=== PATIENT | female | born 1985 | race Caucasian/White ===

== ENCOUNTER → 2022-07-03 17:01 | Outpatient (CLI) | payer OTHER, MEDICAID, SELFPAY ==
--- NOTE | 2022-07-03 17:03 | DI.RAD.S_ITS ---
PROCEDURE: XR CHEST 2V INDICATIONS: Cough TECHNIQUE: 2 views of the chest were acquired. COMPARISON: None. FINDINGS: Surgical changes and devices: None. Lungs and pleura: Increased bronchovascular markings in bilateral hilar region are seen with mild bronchial wall thickening. No definite focal infiltrate. No pleural effusions or pneumothorax. Mediastinum: Mediastinal contours are normal. Heart size is normal. Bones and chest wall: No suspicious bony abnormalities. Soft tissues appear unremarkable. IMPRESSION: Finding is suggestive of reactive airway disease such as bronchitis or viral illness. No definite focal infiltrate. No pleural effusion or pneumothorax. Dictated by: Soham Campo M.D. on 07/04/2022 at 8:21 Approved by: Soham Campo M.D. on 07/04/2022 at 8:22
== END ==
PROVIDERS: Referring Provider Nurse Practitioner Family; Visit Provider Nurse Practitioner Family
DX: R05.9 Cough, unspecified (principal)
CPT/HCPCS: 71046

== ENCOUNTER 2023-07-11 21:39 | Emergency (ER) | payer SELFPAY ==
[2023-07-11 21:41] VITALS: BP 128/70; PULSE 96; RESP 16; TEMP 36.8; O2SAT 95; BMI 23.8
--- NOTE | 2023-07-11 22:35 | PC.NURSE ---
Pt states that she is unsure about wear the bugs are coming from. She has had multiple exposures to plants, and possible other household bugs. Pt states that she is concerned that it is affecting her blood, which possibly is causing her a blood clot.
--- NOTE | 2023-07-11 23:42 | ED.SKABFB ---
HPI - Skin/Abscess/Foreign Bdy General Chief complaint: Skin/Abscess/Foreign Body Stated complaint: allergic reaction Time Seen by Provider: 07/11/23 23:42 Source: patient Mode of arrival: Ambulatory History of Present Illness HPI narrative: 37-year-old female with numerous varied complaints. She has been coughing for 1 week, history of asthma, prior inhaler use, not particularly short of breath, dry cough. She also has skin lesions both arms, and also a bump on her left neck, concerned about ?bugs? that might be bothering her. No known exposure to scabies. Rash to the left scalp line behind the ear, denies history of known psoriasis or eczema. She has currently not on any antibiotic therapy. Related Data Previous Rx's Medication Instructions Recorded albuterol sulfate 90 mcg/actuation 2 puff inhalation Q6H PRN 07/03/22 aerosol inhaler shortness of breath or wheezing #6.7 grams benzonatate 100 mg capsule 100 mg PO BID PRN cough #20 caps 07/03/22 fluticasone propionate 50 1 spray intranasal Q12H #16 grams 07/03/22 mcg/actuation nasal spray,suspension (Flonase Allergy Relief) albuterol sulfate 90 mcg/actuation 2 puff inhalation Q6H PRN 07/12/23 aerosol inhaler shortness of breath or wheezing #8.5 grams cephalexin 500 mg capsule 500 mg PO QID 7 days #28 caps 07/12/23 prednisone 20 mg tablet 40 mg (2 x 20 mg) PO DAILY 5 days 07/12/23 #10 tabs Allergies Allergy/AdvReac Type Severity Reaction Status Date / Time No Known Drug Allergies Allergy Verified 07/11/23 21:41 Patient History Social History Smoking Status: Current every day smoker Smoking Status: Current every day smoker tobacco type: vaping Substance Use Type: does not use Exam Narrative Exam Narrative: GENERAL: Well-developed patient, in mild distress. HEAD: Atraumatic. Normocephalic. Has right posterior auricular scalp line psoriatic like patch approximately 3 x 4 cm EYES: Pupils equal round and reactive. Extraocular motions intact. No scleral icterus. No injection or drainage. ENT: Nose without bleeding, purulent drainage. Throat without erythema, tonsillar hypertrophy or exudate. Airway patent. NECK: Trachea midline. Left posterior chain lymph node proximally 1.5 cm non fluctuant noted. Laryngitis sounding voice, no drool, moves neck well. CARDIOVASCULAR: Regular rate and rhythm without murmurs, gallops, or rubs. RESPIRATORY: Bilateral slight wheeze, moving air well, no respiratory distress, no retractions, no crackles or rhonchi. GASTROINTESTINAL: Abdomen soft, non-tender, nondistended. EXTREMITIES: No edema or joint tenderness. BACK: Nontender without deformity or crepitance. No flank tenderness. NEURO: AOx3. SKIN: No rash or erythema of visible areas. Scattered small scabs bilateral upper extremities forearms and upper extremities, look in appearance and pattern as if she had been scratching and picking at them. No obvious burrowing like tracts. Initial Vital Signs Initial Vital Signs: Vital Signs Temperature 98.3 F 07/11/23 21:41 Pulse Rate 96 H 07/11/23 21:41 Respiratory Rate 16 07/11/23 21:41 Blood Pressure 128/70 07/11/23 21:41 Pulse Oximetry 95 07/11/23 21:41 Oxygen Delivery Method Room Air 07/11/23 21:41 Course Orders Ordered: ED Orders 07/12/23 02:53 Urine Drug Screen, Rapid Stat Discontinued Medications Albuterol (Albuterol 1.25 Mg/3 Ml Neb (Pediatric)) 1.25 mg INH NOW ONE Stop: 07/12/23 01:04 Last Admin: 07/12/23 01:14 Dose: 1.25 mg Documented By: ZOILA Cephalexin HCl (Cephalexin 250 Mg Capsule) 500 mg PO NOW ONE Stop: 07/12/23 01:04 Last Admin: 07/12/23 01:14 Dose: 500 mg Documented By: ZOILA Prednisone (Prednisone 20 Mg Tablet) 40 mg PO NOW ONE Stop: 07/12/23 01:04 Last Admin: 07/12/23 01:15 Dose: 40 mg Documented By: ZOILA Vital Signs Vital signs: Vital Signs - 8 hr 07/11/23 21:41 Temperature 98.3 F Pulse Rate 96 H Respiratory Rate 16 Blood Pressure 128/70 Pulse Oximetry 95 Oxygen Delivery Method Room Air MDM - Skin/Abscess/Foreign Bdy Lab Data Labs: Lab Results 07/12/23 Range/Units 02:53 U Opiates 300ng/mL cut Negative (Negative) Ur Oxycodone Screen Negative (Negative) Urine Methadone Screen Negative (Negative) Ur Barbiturates Screen Negative (Negative) U Tricyclic Antidepress Negative (Negative) Ur Phencyclidine Scrn Negative (Negative) Ur Amphetamines Screen Positive H (Negative) U Methamphetamines Scrn Positive H (Negative) Ur MDMA Scrn (Ecstasy) Negative (Negative) U Benzodiazepines Scrn Negative (Negative) Urine Cocaine Screen Negative (Negative) U Marijuana (THC) Screen Negative (Negative) Urine pH TNP Urine Specific [place] TNP Ur Creatinine TNP Point of Care Testing Test Results Negative Glucose POC 83 MDM Narrative Medical decision making narrative: Varied complaints including bump to left neck, likely cervical lymphadenopathy 1.5 cm non fluctuant in left posterior chain, psoriatic appearing plaque left mastoid area, possibly reactive/infected lymph node. P.o. Keflex dose. Suspected picking like lesions predominant upper extremity. UDS positive for amphetamine and methamphetamine noted. Extremity lesions not obviously infected. There are no burrowing tracts, do not appear to be consistent with scabies lesions. Also recent cough and wheezing on exam, speaking in full sentences, no respiratory distress, SVN albuterol, refill of MDI to use at home, p.o. prednisone now, prednisone pulse for discharge. Encouraged to follow up with her regular doctor in the next few days to recheck neck lesion response to antibiotics, also to recheck lungs in symptoms on steroid pulse dose on home albuterol. Discharge Plan Departure Patient Disposition: Home Clinical Impression: Acute cervical adenitis, Upper respiratory infection, Wheezing, Laryngitis Activity Restrictions/Additional Instructions: Left-sided neck node enlargement, with skin patch plaque behind left ear along scalp line, possible psoriatic plaque, possible nidus of infection, possible reactive posterior neck cervical chain enlarged lymph node. Trial of antibiotics cephalexin for now, to see if enlarged lymph node will resolve with the antibiotics. If it persists or if it grows in size, biopsy might be necessary to rule out cancer or other cause of enlarged node. Various skin scabs unclear cause, none with obvious burrowing, seems less likely scabies. Recent cough, history of asthma, home inhaler use, breathing treatment in ED, prednisone steroid given, prescription for further prednisone next few days. Recheck lung exam in your skin symptoms in neck swelling symptoms with regular doctor in the next couple of days in clinic. Return to this/nearest emergency department for any change worsening or any concerning symptoms prior Prescriptions: New prednisone 20 mg tablet 40 mg PO DAILY 5 Days Qty: 10 0RF cephalexin 500 mg capsule 500 mg PO QID 7 Days Qty: 28 0RF albuterol sulfate 90 mcg/actuation HFA aerosol inhaler 2 puff inhalation Q6H PRN (Reason: shortness of breath or wheezing) Qty: 8.5 0RF No Action fluticasone propionate [Flonase Allergy Relief] 50 mcg/actuation spray,suspension 1 spray intranasal Q12H Qty: 16 0RF Rx Instructions: administer into each nostril benzonatate 100 mg capsule 100 mg PO BID PRN (Reason: cough) Qty: 20 0RF albuterol sulfate 90 mcg/actuation HFA aerosol inhaler 2 puff inhalation Q6H PRN (Reason: shortness of breath or wheezing) Qty: 6.7 0RF Referrals: Miscellaneous,Doctor, MD [Primary Care Provider] - Stand Alone Forms: Patient Portal/API
[2023-07-12] MEDS: ALBUTEROL 1.25 MG/3 ML NEB (PEDIATRIC) INH (01:14)
[2023-07-12] MEDS: cephALEXin 250 MG CAPSULE 500 MG PO (01:14)
[2023-07-12] MEDS: predniSONE 20 MG TABLET 40 MG PO (01:15)
[2023-07-12 03:05] LABS: UR Morphine/Opiate cutoff 300 Negative (Negative); Urine Amphetamines Positive (Negative); Urine Barbiturates Negative (Negative); Urine Benzodiazepines Negative (Negative); Urine Cocaine Negative (Negative); Urine MDMA Negative (Negative); Urine Methadone Negative (Negative); Urine Methamphetamines Positive (Negative); Urine Oxycodone Negative (Negative); Urine Phencyclidine Negative (Negative); Urine Tetrahydrocannabinol Negative (Negative); Urine Tricyclic Antidepressant Negative (Negative)
== END 2023-07-12 03:10 | disposition home or self-care (01) ==
PROVIDERS: Emergency Provider Emergency Medicine
DX: L04.0 Acute lymphadenitis of face, head and neck (principal); J06.9 Acute upper respiratory infection, unspecified; J04.0 Acute laryngitis; F17.200 Nicotine dependence, unspecified, uncomplicated
CPT/HCPCS: 80305; 81025; 82962; 99283; J7613